=== PATIENT | female | born 1985 | race American Indian/Alaskan Native ===

== ENCOUNTER 2017-04-14 23:55 | Inpatient (IN) | payer SELFPAY ==
[2017-04-15] MEDS ORDERED: PITOCin/NS 20 UNIT/1000ML DRIP 20,000 MILLIUNITS/1,000 ML BAG IV ONE (00:31)
[2017-04-15] MEDS ORDERED: STADOL ONE (01:04)
[2017-04-15] MEDS ORDERED: PHENERGAN PO PRN ×2 (01:08→03:57)
[2017-04-15] MEDS ORDERED: BRETHINE IVP PRN (01:08)
[2017-04-15] MEDS ORDERED: MINERAL OIL PO PRN (01:08)
[2017-04-15] MEDS ORDERED: BRETHINE SUB-Q PRN (01:08)
[2017-04-15] MEDS ORDERED: ePHEDrine SULFATE IV PRN (01:08)
[2017-04-15] MEDS ORDERED: STADOL IV PRN (01:08)
[2017-04-15] MEDS ORDERED: XYLOCAINE 2% INFILTRATI ONE (01:08)
--- NOTE | 2017-04-15 01:18 | History and Physical Report ---
History of Present Illness Date of examination: 04/15/17 Date of admission: 04/14/17 23:55 History of present illness: Patient presented to the labor and delivery completely dilated and quickly progressed to a spontaneous vaginal delivery. Patient came with information stating she was receiving care at [facility] with the understanding to be delivered at [facility]. Review of patient's records revealed that she did have a positive RPR with a 1-1 titer patient only had limited care. Starting at 27 weeks and last visits recorded at 30 weeks on 02/21/2017 Past History Past Medical History: no pertinent history Past Surgical History: no surgical history Family/Genetic History: diabetes, hypertension Social history: single. denies: smoking, alcohol abuse - Obstetrical History Expected Date of Delivery: 04/29/17 Actual Gestation: 38 Week(s) 0 Day(s) : 2 Para: 1 Hx # Term Pregnancies: 1 Number of Pregnancies: 0 Spontaneous Abortions: 0 Induced : 0 Number of Living Children: 1 #1 Gender: Male year: 2010 Birthweight: 6 lb 9.822 oz Method of Delivery: Vaginal Gestational age at delivery: 40 Complications: none Medications and Allergies Active Meds: Active Medications Terbutaline Sulfate (Brethine) 0.25 mg SUB-Q ONCE PRN PRN Reason: Hyperstimulation/Hypertonicity Stop: 04/15/17 01:09 Terbutaline Sulfate (Brethine) 0.25 mg IVP ONCE PRN PRN Reason: Hyperstimulation/Hypertonicity Stop: 04/15/17 01:09 - Physical Exam Breasts: Positive: deferred Cardiovascular: Regular rate Lungs: Positive: Normal air movement Abdomen: Positive: soft Genitourinary (Female): Positive: normal external genitalia Vulva: left: laceration/episiotomy (periurethral does not require repair) Vagina: Positive: normal moisture Uterus: Positive: other (firm at umbilicus) Extremities: Positive: normal Results All other labs normal. Assessment and Plan - Patient Problems (1) Premature rupture of membranes Current Visit: Yes Status: Acute Qualifiers: PROM onset of labor timing: onset of labor within 24 hours of rupture PROM gestational age: full term Qualified Code(s): O42.02 - Full-term premature rupture of membranes, onset of labor within 24 hours of rupture (2) Normal vaginal delivery Current Visit: Yes Status: Acute Plan to address problem: Please see the delivery note will start normal care (3) Positive RPR test Current Visit: Yes Status: Acute Plan to address problem: We'll repeat RPR (4) Limited care in third trimester Current Visit: Yes Status: Acute
--- NOTE | 2017-04-15 01:29 | Procedure Note ---
OB Delivery Note - Delivery Date of Delivery: 04/15/17 Surgeon: DEBRA WAYNE Estimated blood loss: other (250cc) - Vaginal Delivery position: OA Delivery induction: none Delivery monitor: none Route of delivery: Delivery placenta: spontaneous Episiotomy: none Delivery laceration: 1st degree (periurethral no repair needed) Anesthesia: none Delivery comments: Patient arrived by EMS with head . Liver was performed by nursing staff female infant without difficulty and arrived after delivery. - A at 1 minute: 8 at 5 minutes: 9 Infant Gender: Female
[2017-04-15] MEDS ORDERED: PITOCin/NS 20 UNIT/1000ML DRIP 20 UNITS/1,000 ML BAG IV SCH (02:00)
[2017-04-15] MEDS ORDERED: LACTATED RINGERS 1,000 ML IV SCH (02:00)
[2017-04-15 02:56] LABS: Hematocrit 35.4 % (30.3-42.9); Hemoglobin 11.7 gm/dl (10.1-14.3); Mean Corpuscular HGB Conc 33 % (30-34); Mean Corpuscular Hemoglobin 31 pg (28-32); Mean Corpuscular Volume 93 fl (79-97); Platelet Count 254 K/mm3 (140-440); Red Cell Distribution Width 13.5 % (13.2-15.2); White Blood Count 15.4 K/mm3 (4.5-11.0)
[2017-04-15] MEDS ORDERED: LANSINOH TP PRN (03:57)
[2017-04-15] MEDS ORDERED: SODIUM CHLORIDE FLUSH SYRINGE 10 ML IV PRN (03:57)
[2017-04-15] MEDS ORDERED: TYLENOL PO PRN (03:57)
[2017-04-15] MEDS ORDERED: TUCKS PAD TP PRN (03:57)
[2017-04-15] MEDS ORDERED: BENADRYL PO PRN (03:57)
[2017-04-15] MEDS ORDERED: MILK OF MAGNESIA PO PRN (03:57)
[2017-04-15] MEDS ORDERED: DULCOLAX PR PRN (03:57)
[2017-04-15] MEDS: NORCO 5/325 PO PRN ×2 (04:35→20:53)
[2017-04-15] MEDS: MOTRIN PO SCH ×3 (04:35→18:14)
[2017-04-15] MEDS ORDERED: BOOSTRIX IM ONE ×2 (06:00→20:45)
[2017-04-15] MEDS: COLACE PO SCH (11:57)
[2017-04-15] MEDS: PRENATAL VITAMIN PO SCH (11:57)
[2017-04-15] MEDS ORDERED: FLUARIX QUAD 2016-2017(36 MOS+) IM ONE (12:00)
[2017-04-15 14:01] LABS: Hematocrit 29.8 % (30.3-42.9); Hemoglobin 10.1 gm/dl (10.1-14.3)
[2017-04-16] MEDS: COLACE PO SCH ×2 (10:13→21:50)
[2017-04-16] MEDS: PRENATAL VITAMIN PO SCH (10:13)
--- NOTE | 2017-04-16 10:15 | Progress Note ---
Assessment and Plan patient doing well, no complaints. desires d/c home today. Maldonado robert, VSSAF , H&H 09/17, patient denies s/s anemia (anemia from blood loss). Patient states she will f/[facility] for care. - Patient Problems (1) Hepatitis B surface antigen positive Current Visit: Yes Status: Acute Plan to address problem: peds aware, patient will f/u with [facility] (2) Normal vaginal delivery Current Visit: Yes Status: Acute Subjective - Subjective Date of service: 04/16/17 Principal diagnosis: day #1 s/p Patient reports: appetite normal, voiding normally, pain well controlled, ambulating normally, no dizzy ambulation, no nauseated : doing well, bottle feeding Objective - Vital Signs Latest vital signs: Vital Signs Temp Pulse Resp BP 04/16/17 07:55 98.4 F 70 16 97/61 04/16/17 00:00 98.4 F 79 20 101/62 04/15/17 20:53 18 04/15/17 16:56 98.6 F 71 16 95/56 04/15/17 13:04 97.6 F 72 18 94/56 Intake and Output 04/15/17 04/16/17 04/16/17 22:59 06:59 14:59 Intake Total 240 240 Balance 240 240 Intake: Oral 240 240 Other: Total, Intake Amount 240 240 # Voids Void 1 1 - Exam Breasts: Present: normal Cardiovascular: Present: Regular rate Lungs: Present: Clear to auscultation, Normal air movement Abdomen: Present: normal appearance, soft Vulva: both: normal Uterus: Present: normal, firm, fundal height at umbilicus Extremities: Present: normal Deep Tendon Reflex Grade: Normal +2 - Labs Labs: Abnormal lab results 04/15/17 Range/Units 13:40 Hct 29.8 L (30.3-42.9) %
--- NOTE | 2017-04-16 10:17 | Discharge Summary ---
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 Reason for admission: active labor Delivery: Episiotomy: none Laceration: 1st degree Incision: normal Other procedures: none complications: none Discharge diagnosis: IUP at term delivered baby: female Hospital course: uncomplicated vaginal Condition at discharge: Good Disposition: DISCHARGED TO HOME OR SELFCARE - Discharge Diagnoses (1) Hepatitis B surface antigen positive Status: Acute (2) Normal vaginal delivery Status: Acute Plan - Provider Discharge Summary Activity: routine, no sex for 6 weeks, no heavy lifting 4 weeks, no strenuous exercise Diet: routine Instructions: routine Additional instructions: [] Smoking cessation referral if applicable(refer to patient education folder for contact #) [] Refer to [facility] Booklet Call your doctor immediately for: * Fever > 100.5 * Heavy vaginal bleeding ( >1 pad per hour) * Severe persistent headache * Shortness of breath * Reddened, hot, painful area to leg or breast * Drainage or odor from incision. * Keep incision clean and dry at all times and follow doctor's instructions regarding bathing/showering - Follow up plan Follow up: PRIMARY CARE,MD [Primary Care Provider] - 7 Days TRIPP KAUR CNM [Advanced Practice Nurse] - 6 Weeks (Congratulations! Please follow up with [facility] for care or call our office @ [phone] to schedule visit in 6 weeks. Call for any questions or concerns.)
[2017-04-16] MEDS: MOTRIN PO SCH ×3 (12:09→17:16)
[2017-04-16] MEDS: NORCO 5/325 PO PRN (16:27)
[2017-04-17] MEDS: MOTRIN PO SCH ×2 (00:11→05:15)
[2017-04-17 09:02] VITALS: BP 92/52
[2017-04-17] MEDS: PRENATAL VITAMIN PO SCH (10:18)
[2017-04-17] MEDS: COLACE PO SCH (10:18)
== END 2017-04-17 12:38 | disposition home or self-care (01) | DRG 774 ==
LOC: LD 23:55 → OB 04-15 03:35
PROVIDERS: ADMIT Obstetrics & Gynecology; ATTEND Obstetrics & Gynecology
PROC: 10E0XZZ Delivery of Products of Conception, External Approach (ICD-10-PCS; principal; 2017-04-15)
PROC: 3E0234Z Introduction of Serum, Toxoid and Vaccine into Muscle, Percutaneous Approach (ICD-10-PCS; 2017-04-15)
DX: O42.02 Full-term premature rupture of membranes, onset of labor within 24 hours of rupture (principal); O98.42 Viral hepatitis complicating childbirth; B19.10 Unspecified viral hepatitis B without hepatic coma; O71.82 Other specified trauma to perineum and vulva; O09.33 Supervision of pregnancy with insufficient antenatal care, third trimester; Z3A.38 38 weeks gestation of pregnancy; Z37.0 Single live birth; Z23 Encounter for immunization; Z83.3 Family history of diabetes mellitus; Z82.49 Family history of ischemic heart disease and other diseases of the circulatory system
CPT/HCPCS: 36415; 85014; 85018; 85027; 86592; 86850; 86900; 86901; 90471; 90686; 90715; 99211; G0008; G0463; J0595; J2590

== ENCOUNTER 2017-04-20 12:50 | Emergency (ER) | payer SELFPAY ==
[2017-04-20 13:16] LABS: Basophils % (Auto) 0.4 % (0.0-1.8); Eosinophils % (Auto) 3.4 % (0.0-4.3); Hematocrit 32.3 % (30.3-42.9); Hemoglobin 10.9 gm/dl (10.1-14.3); Mean Corpuscular HGB Conc 34 % (30-34); Mean Corpuscular Hemoglobin 32 pg (28-32); Mean Corpuscular Volume 95 fl (79-97); Platelet Count 407 K/mm3 (140-440); Red Cell Distribution Width 14.2 % (13.2-15.2); White Blood Count 10.5 K/mm3 (4.5-11.0)
[2017-04-20 13:37] LABS: Alanine Aminotransferase 24 units/L (7-56); Albumin 3.3 g/dL (3.9-5); Albumin/Globulin Ratio 0.8 %; Alkaline Phosphatase 71 units/L (35-129); Anion Gap 18 mmol/L; Blood Urea Nitrogen 12 mg/dL (7-17); Carbon Dioxide 22 mmol/L (22-30); Chloride 101.7 mmol/L (98-107); Glucose 81 mg/dL (65-100); Lipase 43 units/L (13-60); Potassium 4.2 mmol/L (3.6-5.0); Sodium 137 mmol/L (137-145); Total Protein 7.7 g/dL (6.3-8.2)
[2017-04-20 13:45] LABS: Bacteria,Urine 1+ /HPF (Negative); Bilirubin,Urine NEG (Negative); Blood,Urine LG (Negative); Ketones,Urine NEG (Negative); Leukocyte Esterase,Urine LG (Negative); Mucus,Urine FEW /HPF; Nitrite,Urine NEG (Negative); Protein,Urine <15 mg/dL mg/dL (Negative); Urobilinogen,Urine < 2.0 mg/dL (<2.0)
--- NOTE | 2017-04-20 14:46 | Emergency Department Report ---
ED Abdominal Pain HPI - General Chief Complaint: Abdominal Pain Stated Complaint: ABD PAIN Time Seen by Provider: 04/20/17 14:20 Source: patient Mode of arrival: Ambulatory Limitations: No Limitations - History of Present Illness MD Complaint: abdominal pain -: Gradual Location: suprapubic Radiation: none Migration to: no migration Severity: mild Severity scale (0 -10): 3 Quality: cramping Consistency: intermittent Improves With: nothing Worsens With: nothing Associated Symptoms: dysuria. denies: nausea, vomiting, diarrhea, fever, chills , constipation, hematemesis, melena, hematuria - Related Data Previous Rx's Medication Instructions Recorded Last Taken Type Cephalexin [Keflex] 500 mg PO ONCE #14 capsule 04/20/17 Unknown Rx Allergies Allergy/AdvReac Type Severity Reaction Status Date / Time No Known Allergies Allergy Verified 04/15/17 01:42 ED Review of Systems ROS: Stated complaint: ABD PAIN Other details as noted in HPI Comment: All other systems reviewed and negative ED Past Medical Hx - Past Medical History Previous Medical History?: Yes Hx Hypertension: No Hx Congestive Heart Failure: No Hx Diabetes: No Hx Deep Vein Thrombosis: No Hx Renal Disease: No Hx Sickle Cell Disease: No Hx Seizures: No Hx Asthma: No Hx COPD: No Hx HIV: No Additional medical history: vaginal delivery 04-15-2017 - Surgical History Past Surgical History?: No - Social History Smoking Status: Never Smoker Substance Use Type: None - Medications Home Medications: Home Medications Medication Instructions Recorded Confirmed Last Taken Type Cephalexin [Keflex] 500 mg PO ONCE #14 capsule 04/20/17 Unknown Rx ED Physical Exam - General Limitations: No Limitations General appearance: alert, in no apparent distress - Head Head exam: Present: atraumatic, normocephalic - Eye Eye exam: Present: normal appearance - ENT ENT exam: Present: mucous membranes moist - Neck Neck exam: Present: normal inspection - Respiratory Respiratory exam: Present: normal lung sounds bilaterally. Absent: respiratory distress - Cardiovascular Cardiovascular Exam: Present: regular rate, normal rhythm. Absent: systolic murmur, diastolic murmur, rubs, gallop - GI/Abdominal GI/Abdominal exam: Present: soft, normal bowel sounds - Extremities Exam Extremities exam: Present: normal inspection - Back Exam Back exam: Present: normal inspection - Neurological Exam Neurological exam: Present: alert, oriented X3 - Psychiatric Psychiatric exam: Present: normal affect, normal mood - Skin Skin exam: Present: warm, dry, intact, normal color. Absent: rash ED Course Vital Signs 04/20/17 04/20/17 12:56 14:29 Temperature 98.3 F 98.6 F Pulse Rate 89 76 Respiratory 20 16 Rate Blood Pressure 127/73 Blood Pressure 112/70 [Right] O2 Sat by Pulse 100 99 Oximetry ED Medical Decision Making - Lab Data Result diagrams: 04/20/17 13:05 04/20/17 13:05 - Radiology Data Radiology results: report reviewed, image reviewed - Medical Decision Making patient doing well, US pelvis normal , laba negative except for uti, will tx with abx and dc with follow up Critical care attestation.: If time is entered above; I have spent that time in minutes in the direct care of this critically ill patient, excluding procedure time. ED Disposition Clinical Impression: UTI (urinary tract infection) Disposition: DISCHARGED TO HOME OR SELFCARE Is pt being admited?: No Does the pt Need Aspirin: No Condition: Good Instructions: Abdominal Pain (ED), Urinary Tract Infection in Women (ED) Prescriptions: Cephalexin [Keflex] 500 mg PO ONCE #14 capsule Referrals: PRIMARY CARE, [Primary Care Provider] - 3-5 Days Time of Disposition: 17:04
--- NOTE | 2017-04-20 16:42 | Ultrasound Report ---
Transvaginal and transabdominal pelvic ultrasound. History: Pelvic pain and vaginal bleeding in a patient who is 5 days . Findings: The enlarged uterus is consistent with the history. Endometrial echo is thickened at 1.7 cm. No focal uterine abnormalities are seen. The ovaries are normal in size and configuration. No adnexal masses are seen. There is no fluid within the cul-de-sac. Impression: Thickened endometrium consistent with history. No specific abnormalities are identified.
[2017-04-20] MEDS ORDERED: KEFLEX PO ONE (17:03)
[2017-04-20 17:22] VITALS: BP 110/75
== END 2017-04-20 17:22 | disposition home or self-care (01) ==
LOC: ED 12:50
DX: N39.0 Urinary tract infection, site not specified (principal)
CPT/HCPCS: 36415; 76830; 76856; 80053; 81001; 83690; 85025; 99284